=== PATIENT | male | born 1965 | race Hispanic/Latino ===

== ENCOUNTER 2022-05-25 09:42 | Day surgery (SDC) | payer OTHER ==
[2022-05-25] MEDS ORDERED: LACTATED RINGERS 1,000 ML ONE (10:14)
[2022-05-25] MEDS ORDERED: BACTERIOSTATIC SODIUM CHLORIDE 0.9% 30 ML VIAL INFILTRATI ONE (10:33)
--- NOTE | 2022-05-25 10:42 | Anesthesia Day of Surgery ---
Anesthesia Day of Surgery - Day of Surgery Patient Examined: Yes Patient H&P Reviewed: Yes Patient is NPO: Yes
--- NOTE | 2022-05-25 10:43 | Anesthesia Day of Surgery ---
Anesthesia Day of Surgery - Day of Surgery Patient Examined: Yes Patient H&P Reviewed: Yes Patient is NPO: Yes
[2022-05-25] MEDS ORDERED: NEOMY 3.5 MG/BACIT 400 UNITS/POLY B 5000 UNITS/GM OINT PACKET TP ONE (10:44)
[2022-05-25] MEDS ORDERED: BUPIVACAINE/PF (0.25%) 2.5 MG/ML 30 ML VIAL INFILTRATI ONE (10:44)
--- NOTE | 2022-05-25 10:44 | Anesthesia Consultation ---
Anesthesia Consult and Med Hx Date of service: 05/25/22 - Airway Anesthetic Teeth Evaluation: Good ROM Head & Neck: Adequate Mental/Hyoid Distance: Adequate Mallampati Class: Class III Intubation Access Assessment: Probably Good - Pulmonary Exam CTA: Yes - Cardiac Exam Cardiac Exam: RRR - Pre-Operative Health Status ASA Pre-Surgery Classification: ASA3 Proposed Anesthetic Plan: General - Pulmonary Hx Smoking: Yes (1-2 CIGARETTES PER DAY) Hx Sleep Apnea: Yes (PENNIE PRE SCREEN LOW RISK) - Cardiovascular System Hx Hypertension: No - Endocrine Hx Hypothyroidism: Yes - Hematic Hx Anemia: No - Other Systems Hx Alcohol Use: Yes (WINE DAILY) Hx Cancer: No
[2022-05-25] MEDS ORDERED: GABAPENTIN 300 MG CAP ONE (10:54)
[2022-05-25] MEDS ORDERED: GABAPENTIN 300 MG CAP PO NR (11:00)
[2022-05-25] MEDS ORDERED: MAGNESIUM OXIDE 400 MG TAB PO NR (11:00)
[2022-05-25] MEDS ORDERED: LACTATED RINGERS 1,000 ML IV SCH (11:00)
[2022-05-25] MEDS ORDERED: HYDROmorphone 0.5 MG/0.5 ML INJ IV PRN ×2 (11:00)
[2022-05-25] MEDS ORDERED: ACETAMINOPHEN 500 MG TAB PO NR (11:00)
[2022-05-25] MEDS ORDERED: CELECOXIB 200 MG CAP PO NR (11:00)
[2022-05-25] MEDS ORDERED: ONDANSETRON 4 MG/2 ML INJ IV NR (11:00)
[2022-05-25] MEDS ORDERED: HYDROmorphone 1 MG/1 ML INJ ONE (11:19)
[2022-05-25] MEDS ORDERED: propofoL 200 MG/20 ML VIAL IV ONE ×2 (11:19→12:15)
[2022-05-25] MEDS ORDERED: LIDOCAINE MPF (2%) 20 MG/1 ML VIAL 5 ML ONE (11:20)
[2022-05-25] MEDS ORDERED: MIDAZOLAM 2 MG/2 ML INJ ONE (11:23)
[2022-05-25] MEDS ORDERED: ceFAZolin/STERILE WATER 2 GM/20 ML SYRINGE IV NR (11:37)
[2022-05-25] MEDS ORDERED: ceFAZolin/Water 2 GM/20 ML 2 GM/20 ML SYRINGE IV ONE (11:40)
[2022-05-25] MEDS ORDERED: ONDANSETRON 4 MG/2 ML INJ ONE (13:01)
--- NOTE | 2022-05-25 13:17 | Post Operative Note ---
Date of procedure: 05/25/22 Pre-op diagnosis: balanitis Post-op diagnosis: same Findings: red foreskin Procedure: circ Anesthesia: GETA Surgeon: KELLY OLMEDO Estimated blood loss: minimal Pathology: list (skin) Specimen disposition: to lab Condition: stable Disposition: PACU
--- NOTE | 2022-05-25 13:19 | Discharge Summary ---
Short Stay Discharge Plan Activity: other (no sex no straining ) Weight Bearing Status: Full Weight Bearing Diet: low fat, low cholesterol Wound: open to air Special Instructions: other (in rr and x 24 hrs ) Durable Medical Equipment Needed Upon Discharge: other (remove dressing tonight ) Follow up with: KRISTINAPHOENIX [Primary Care Provider] - 7 Days KELLY OLMEDO MD [Staff Physician] - 14 Days
--- NOTE | 2022-05-25 14:09 | Post Anesthesia Evaluation ---
- Post Anesthesia Evaluation Patient Participated: Yes Airway Patent: Yes Stable Respiratory Function: Yes Nausea/Vomiting: No Temp > 96.8F: Yes Pain Manageable: Yes Adequeate Hydration: Yes Anesthesia Complications: No Block Receding Appropriately: Not Applicable Patient on Ventilator: No
--- NOTE | 2022-05-25 14:58 | Operative Report ---
DATE OF SURGERY: 05/25/2022 PREOPERATIVE DIAGNOSIS: Severe redundant foreskin, balanitis. POSTOPERATIVE DIAGNOSIS: Severe redundant foreskin, balanitis. PROCEDURES: Circumcision, sleeve technique. SURGEON: Pravin Morales MD ANESTHESIA: General. FINDINGS: This gentleman presents for circumcision. All risks and implications discussed. DESCRIPTION OF PROCEDURE: The patient was brought to operating room and placed on the operating table. Following induction of anesthesia, placed in supine position, prepped and draped in usual sterile fashion. A small incision was made after the area was marked dorsally by the rabbi and the rest of the incision was done by myself. Another incision was made circumferentially. A large amount of excess skin was excised. The patient tolerated the procedure well. Minimal bleeding. Any small vessels were tied with 3-0 Vicryl. Hemostasis was excellent. Wound was irrigated. Sutures were placed at 12, 3, 6, and 9 o'clock position and each quadrant was sutured with 3-0 chromic. The patient tolerated the procedure well. No significant complication. A loose sterile dressing was applied, will be removed tonight, brought to recovery in stable condition. TID: [id number] RECEIPT: [id number] MARLYS/JONNY/BRAULIO
[2022-05-25 20:00] VITALS: BP 148/74
== END 2022-05-25 16:40 | disposition home or self-care (01) ==
LOC: OR 09:42
PROVIDERS: ATTEND Urology
DX: N48.1 Balanitis (principal); F17.210 Nicotine dependence, cigarettes, uncomplicated; G47.33 Obstructive sleep apnea (adult) (pediatric); E03.9 Hypothyroidism, unspecified; Z79.899 Other long term (current) drug therapy; Z98.890 Other specified postprocedural states; Z72.89 Other problems related to lifestyle
CPT/HCPCS: 54161; 88304; J0690; J1170; J2250; J2405; J2704; J3490; J7120; 88302